=== PATIENT | female | born 1975 | race Caucasian/White ===

== ENCOUNTER → 2018-06-15 | Outpatient (CLI) | payer BC | LOC: FIMAGING 08:52 | PROVIDERS: ATTEND Otolaryngology | DX: J33.9 Nasal polyp, unspecified (principal); Z98.890 Other specified postprocedural states ==

== ENCOUNTER 2018-08-02 06:53 | Day surgery (SDC) | payer BC ==
[2018-08-02] MEDS ORDERED: MIDAZOLAM 2 MG/2 ML VIAL IVP ONE (07:13)
[2018-08-02] MEDS ORDERED: LR 1,000 ML IV ONE (07:13)
[2018-08-02] MEDS ORDERED: SCOPOLAMINE HYDROBROMIDE 1 MG/3 DAYS PATCH TD ONE (07:13)
[2018-08-02] MEDS ORDERED: ceFAZolin 2 GM/DEXTROSE 100 ML IV ONE (07:29)
--- NOTE | 2018-08-02 07:29 | PDHPUP ---
History & Physical Update H&P update statement: This history and physical update is based on an assessment of the patient which was completed after admission or registration (within 24 hours), but prior to the surgery/procedure. H&P update: H&P reviewed & patient examined, no change in patient's condition since H&P completed
[2018-08-02] MEDS ORDERED: DEXMEDETOMIDINE HCL 400 MCG in NS 100 ML IV SCH (07:30)
--- NOTE | 2018-08-02 07:50 | PDANEPAE ---
ANE Past Medical History - Cardiovascular History Hx Hypertension: No Hx Arrhythmias: No Hx Chest Pain: No Hx Coronary Artery / Peripheral Vascular Disease: No Hx CHF / Valvular Disease: No Hx Palpitations: No - Pulmonary History Hx COPD: No Hx Asthma/Reactive Airway Disease: No Hx Recent Upper Respiratory Infection: No Hx Oxygen in Use at Home: No Hx Sleep Apnea: No Sleep Apnea Screening Result - Last Documented: Negative - Neurologic History Hx Cerebrovascular Accident: No Hx Seizures: No Hx Dementia: No - Endocrine History Hx Diabetes: No - Renal History Hx Renal Disorders: No - Liver History Hx Hepatic Disorders: No - Neurological & Psychiatric Hx Hx Neurological and Psychiatric Disorders: No - Cancer History Hx Cancer: No - Congenital Disorder History Hx Congenital Disorders: No - GI History Hx Gastrointestinal Disorders: No - Other Health History Other Health History: wears glasses. reproductive issues- currently on ivf regime. hx of transphenoidal pituitary tumor - Chronic Pain History Chronic Pain: No - Surgical History Prior Surgeries: lap procedure for endometriosis 15 yrs ago. 08/2017 myomectomy for fibroid tumors. 10/2017 transphenoidal pituitary tumor removed ANE Review of Systems Review of Systems: - Exercise capacity METS (RN): 6 METS ANE Patient History - Allergies Allergies/Adverse Reactions: fentanyl Allergy (Verified 08/02/18 08:06) Vomiting after being on a few hours - Home Medications Home Medications: Herbals/Supplements -Info Only 07/27/18 [Last Taken Unknown] Ivf Protocol On Depolupron Qmo 07/27/18 [Last Taken Unknown] Levothyroxine 07/27/18 [Last Taken Unknown] Vit D Once A Week 07/27/18 [Last Taken Unknown] - NPO status NPO Since - Liquids (Date): 08/01/18 NPO Since - Liquids (Time): 19:00 NPO Since - Solids (Date): 08/02/18 NPO Since - Solids (Time): 04:00 - Smoking Hx Smoking Status: Never smoked - Family Anes Hx Family Hx Anesthesia Complications: none ANE Labs/Vital Signs - Vital Signs Vital Signs: reviewed preoperatively; see RN documention for details Blood Pressure: 122/78 Heart Rate: 81 Respiratory Rate: 16 O2 Sat (%): 96 Height: 175.26 cm Weight: 72.575 kg ANE Physical Exam - Airway Neck exam: FROM Mallampati Score: Class 3 Mouth exam: normal dental/mouth exam - Pulmonary Pulmonary: clear to auscultation - Cardiovascular Cardiovascular: regular rate and rhythym - ASA Status ASA Status: II ANE Anesthesia Plan Anesthesia Plan: general endotracheal anesthesia Total IV Anesthesia: Yes
[2018-08-02] MEDS ORDERED: PROPOFOL 200 MG/20 ML VIAL ONE (08:33)
[2018-08-02] MEDS ORDERED: HYDROmorphONE/DILAUDID 2 MG/ML INJ ONE ×2 (08:33→13:08)
[2018-08-02] MEDS ORDERED: PROPOFOL/EMULSION 500 MG/50 ML BOTTLE IV ONE ×4 (08:33→10:37)
[2018-08-02] MEDS ORDERED: PETROLAT,WHT/MIN OIL/SOD CHL 3.5 GM OPHT.OINT ONE (08:35)
[2018-08-02] MEDS ORDERED: ROCURONIUM 50 MG/5 ML VIAL ONE (08:36)
[2018-08-02] MEDS ORDERED: DEXAMETHASONE 4 MG/ML VIAL ONE ×3 (08:36)
[2018-08-02] MEDS ORDERED: MIDAZOLAM 2 MG/2 ML VIAL ONE (08:40)
--- NOTE | 2018-08-02 08:53 | PDGENHP ---
History & Physical Chief Complaint: CRSwNP History of Present Illness: Pt s/p Transnasal transethmoid approach to a pituitary mass 2 yrs ago. For past 8 mos has had nasal obstruction, thick nasal d/c and smell dysfunction. On endoscopy noted polypoid thickening and thick tenacious debris within sphenoid. Have tx with abx and steroids x 2, no imp, Ct showed CRS in ethmoids B and sphenoids B as well as R frontal thickening. Plan for B revision FESS Pertinent Past, Social, Family History: h/o pituitary macroadenoma Relevant Physical Exam: CRSwNP on R Cardiorespiratory Assessment: normal rate and rhythm. No resp distress
[2018-08-02] MEDS ORDERED: BACITRACIN ZINC 0.5 OZ OINTTUBE TP ONE (08:59)
[2018-08-02] MEDS ORDERED: DEXMEDETOMIDINE HCL 400 MCG in NS 100 ML IV ONE (09:00)
[2018-08-02] MEDS ORDERED: METHYLENE BLUE 0.5% 50 MG/10 ML AMP ONE (09:00)
[2018-08-02] MEDS ORDERED: OXYMETAZOLINE 30 ML NASAL SPRAY ONE (09:00)
[2018-08-02] MEDS ORDERED: LIDO/EPI 1% **Not for Epidural 20 ML MDV ONE (09:00)
[2018-08-02] MEDS ORDERED: EPINEPHrine 30 MG/30 ML MDV (0.1 MG/0.1 ML) ONE (09:00)
[2018-08-02] MEDS ORDERED: ESMOLOL HCL 100 MG/10 ML VIAL IV ONE (09:11)
[2018-08-02] MEDS ORDERED: ONDANSETRON 4 MG/2 ML VIAL ONE (10:52)
[2018-08-02] MEDS ORDERED: MEPERIDINE 25 MG/0.5 ML AMP IVP PRN (11:03)
[2018-08-02] MEDS ORDERED: ONDANSETRON 4 MG/2 ML VIAL IVP PRN (11:03)
[2018-08-02] MEDS ORDERED: ACETAMINOPHEN 500 MG TAB PO PRN (11:03)
[2018-08-02] MEDS ORDERED: LR 500 ML IV PRN (11:03)
[2018-08-02] MEDS ORDERED: NALOXONE HCL 0.4 MG/ML INJ IVP PRN (11:03)
[2018-08-02] MEDS ORDERED: PROMETHAZINE HCL 25 MG/ML INJ IVP PRN (11:03)
[2018-08-02] MEDS ORDERED: ALBUTEROL 3 ML DEYVIAL IH PRN (11:03)
[2018-08-02] MEDS ORDERED: METOCLOPRAMIDE 10 MG/2 ML VIAL IVP PRN (11:03)
[2018-08-02] MEDS ORDERED: oxyCODONE IR 5 MG TAB PO PRN (11:03)
[2018-08-02] MEDS ORDERED: HYDROmorphONE/DILAUDID 2 MG/ML INJ IVP PRN (11:03)
--- NOTE | 2018-08-02 11:50 | POSTOPPROG ---
Post Op Note Date of Operation: 08/02/18 Surgeon: Alexandria Lynne Anesthesiologist: Gregoria Anesthesia: GET(General Endotracheal) Pre-op Diagnosis: CRSwNP, prev transethmoid approach to the pituitary Post-op Diagnosis: same Procedure: B FESS, SMRT, Stealth Findings: distorted anatomy R side, prev surgery, polyps in eth and sph B, thick debr Inf/Abcess present in the surg proc area at time of surgery?: No EBL: 50-100 Complications: none
[2018-08-02] MEDS ORDERED: fentaNYL 100 MCG/2 ML INJ ONE (13:04)
--- NOTE | 2018-08-02 14:15 | POSTANESTH ---
Post Anesthetic Evaluation Cardiovascular Status: Normal, Stable Respiratory Status: Normal, Stable Level of Consciousness/Mental Status: Can Participate in Eval, Moderately Sleepy Pain Control: Adequate, Prn Tx Ordered Nausea/Vomiting Control: Adequate, Prn Tx Ordered Complications Possibly Related to Anesthesia: None Noted
[2018-08-02] MEDS ORDERED: oxyCODONE IR 5 MG TAB ONE (14:36)
[2018-08-02 15:03] VITALS: BP 123/79
--- NOTE | 2018-08-08 12:08 | GOP ---
[f rep st] OPERATIVE REPORT DATE OF OPERATION: 08/02/2018 SURGEON: Alexandria Lynne MD ANESTHESIA: General. PREOPERATIVE DIAGNOSIS: 1. Chronic sphenoid sinusitis. 2. Chronic ethmoid sinusitis. 3. Two years status post a trans-ethmoid approach on the right to a pituitary microadenoma. 4. Nasal polyposis. POSTOPERATIVE DIAGNOSIS: 1. Chronic sphenoid sinusitis. 2. Chronic ethmoid sinusitis. 3. Two years status post a trans-ethmoid approach on the right to a pituitary microadenoma. 4. Nasal polyposis. PROCEDURE PERFORMED: 1. Endoscopically assisted septoplasty. 2. Right revision endoscopic maxillary antrostomy. 3. Left endoscopic maxillary antrostomy. 4. Bilateral total sphenoid ethmoidectomies revision with tissue removal bilaterally. 5. Submucous resection of the inferior turbinates bilaterally. 6. Stereotactic volumetric navigation of the paranasal sinuses and extradural skull base utilizing [employer] system. FINDINGS: The patient was found to have evidence of a prior middle turbinectomy on the right, as wel l as a maxillary antrostomy and partial ethmoidectomy. She had widely patent sphenoidotomies bilatera lly. She had very significant thick mucinous debris within the sphenoid that was very difficult to re move, as well as a deviated septum to the left, requiring a septoplasty. ESTIMATED BLOOD LOSS: Minimal. INDICATIONS: The patient is a very pleasant 42-year-old woman who has a history of a pituitary micro adenoma that was found on a workup for infertility. She had surgery for this done at outside [facility] about 2 years ago. For about the past 9 months, she has felt nasal obstruction at the nasal drain age, and postnasal drip, as well as a foul odor in her nose. She was initially seen and had an acute sinusitis and was given antibiotics, as well as some steroids. On nasal endoscopy, she had significan t thick mucinous debris that was visualized within the sphenoid sinus, although this was somewhat obs tructed, secondary to significant polyposis and inflammation in this area on both sides. I really cou ld not see anything on the left, but I could on the right. She was treated with steroids x2 and did n ot have any significant improvement. She also did budesonide rinses, and after no improvement with al l these, a CT scan was done, which showed posterior ethmoid opacification bilaterally, as well as sph enoid opacification on both sides, and evidence of prior surgery on the right. It is felt she would b enefit from the above procedure. DESCRIPTION OF PROCEDURE: The patient was first seen in the preoperative area where informed consent was obtained. She was then brought back to operating room where Anesthesia sedated and intubated her . The bed was turned 90 degrees and she was prepped and draped in a normal fashion. Epinephrine soake d pledgets were placed within the nares bilaterally, and then, the Stealth system was placed on the f orehead, and then the pledgets were removed. She was registered and confirmed to be tracking accurate ly. A universal time-out protocol was performed, and once we had confirmed the patient and procedure, we started the procedure. The 0-degree scope was first used to visualize the right side of the nose. She had evidence of a midd le turbinectomy, some scarring around the maxillary antrostomy, as well as a significant polyposis po steriorly, and some very thick debris was within the ethmoid bed, as well as sphenoid. I did try to s uction out as much as possible from the sphenoid. This was very tenacious and difficult to remove in this fashion. At this point, the microdebrider was used to remove some of the polyps overlying the ma xillary antrostomy, as well as in the ethmoid bed. Once this was done, epinephrine soaked pledgets were placed on this side, and then, the 0-degree scop e was used to evaluate the left side. It was felt she needed an opening of the maxillary and ethmoids on this side as well to completely open the sphenoid in the back and access this region, so at this point, about 5 cc of 1% lidocaine with 1:100,000 epinephrine was injected into the septum on both brian es. Once this had sufficient time to act, a left-sided modified [place] incision was made on the left , and then, a caudal was used to elevate a mucoperiosteal flap posterior to the area of obstruction. The 0-degree scope was used within the incision to help with elevation of the flap. Once this was don e, the cartilage was divided inferiorly to superiorly with a caudal, and then, the mucoperiosteal fla p was elevated on the right side isolating the cartilage and bone, and then, multiple hand instrument s were used to remove the cartilage and bone until I was able to visualize the middle meatus and acce ss the middle meatus well on the left side. I could see to get back to the posterior aspect of the se ptum where the previous posterior septectomy had been done, and at least 1 cm caudal and dorsal strut were left. Once this was done, all instruments were removed from the incision, and then, a 5-0 plain gut was used on a Dread needle to place quilting sutures through and through. At this point, I turned my attention back to the right side. Using navigation, I localized the lamina , as well as the natural os of the maxillary antrostomy. It looked like she still had a little bit of uncinate, as well as some very thick posterior fontanelle and bone. This was taken down and widened using hand instruments, as well as the microdebrider until she had a widely patent maxillary sinus. I then proceeded through the anterior and posterior ethmoids to get to the sphenoid. Once I had the s phenoid more accessible, I had removed the inferior aspect of the superior turbinate, as well as some posterior ethmoid partitions. She already had a very wide sphenoidotomy and so no more bone was justin en down. Some of the scarring was removed, as well as the polyps were taken down until I could see al l aspects of this. Once this was done, I could visualize the very wide sphenoid that was filled with mucinous debris. Very large suctions were used to try to suction this clear and I could not get it, s o at this point, a suction attached to a 60 cc syringe was used to irrigate this gently on the right side releasing some of this area. Once I was able to do this a couple of times, this released the tiera ris enough to where I was able to remove the majority of it from the right and left side, although sh e still had some on the left. Under this, the mucosa was smooth and not overly edematous. At this poi nt, I continued to complete the ethmoidectomy from posterior to anterior along the skull base utilizi ng the [employer] Fusion system. I was able to visualize the frontal recess. I initially thought that a frontal sinusotomy would be necessary, but on visualization, I was able to visualize the entire fro ntal sinus, as well as probe my fusion guided suction in this area. It was felt this did not need to be done. At this point, I turned my attention to the left side. I performed an uncinectomy using the microdebr ider and a back biter, and then, I was able to visualize the natural os with the 70-degree scope. The Fusion guided suction was used to confirm this and this was placed in the natural os, and then, the posterior fontanelle was pushed posteriorly and medially. Hand instruments, as well as microdebrider were used to complete the antrostomy. I then went back to the 0-degree scope and a sinus seeker was p laced in the retrobulla recess and this was fractured forward. Hand instruments, as well as microdebr ider were used to complete the anterior ethmoidectomy, and then, Fusion guided suction was used to ma ke a puncture hole in the basal lamella and inferomedial aspect of it, and then, a J curette was used to fracture some of the posterior ethmoid cells anteriorly and laterally. Hand instruments, as well as the microdebrider were used to clean this area up and complete the ethmoidectomy. Once this was do ne, I could see the sphenoid portion of the superior turbinate on this left side was removed as well, and then, an up-and-down biting [place] were used to remove some ethmoid partitions along the angela a, as well as superiorly along the skull base. Once this was done, the same type of saline irrigation was used in this left sphenoid to loosen up the mucinous debris. This was completely released and vieyra ctioned clear. The entire sphenoid was opened and removed the debris, and the bilateral maxillary and ethmoids were completely opened as well. Once this was done, I used a 2 mm turbinate blade to make a small stab incision in the head of the in ferior turbinate on the left, and then, a submucous resection was performed along the length of this on the left, and then, I did the exact same thing on the right. Once this was done, a [place] was used to first in-fracture and then outfracture the inferior turbinates bilaterally, and she had significan tly more patency on both sides. The nasal cavities were irrigated out copiously with normal saline and then suctioned clear. [place] sp lints that had been cut to size were then placed on either side of the septum and sutured through and through with a 3-0 Prolene to the caudal portion of the septum. Some epinephrine soaked pledgets wer e placed within the nares and tied together until the patient was extubated, and then, these were rem zuleyka in the PACU. The patient was then woken and taken to PACU in stable condition. She tolerated the procedure well. There were no complications, and all pledget counts were correct at the end the proc edure. COMPLICATIONS: None. /[id number]/MODL
== END 2018-08-02 15:17 | disposition home or self-care (01) ==
LOC: FSGY 06:53
PROVIDERS: ATTEND Otolaryngology
DX: J32.2 Chronic ethmoidal sinusitis (principal); J32.3 Chronic sphenoidal sinusitis; J33.8 Other polyp of sinus; J34.2 Deviated nasal septum; J34.89 Other specified disorders of nose and nasal sinuses; Z86.018 Personal history of other benign neoplasm
CPT/HCPCS: J0171; J0690; J1100; J1170; J2250; J2405; J2704; J3010; Q9968